=== PATIENT | male | born 1940 | race Caucasian/White ===

== ENCOUNTER 2020-10-13 15:15 | Outpatient (REF) | payer MEDICARE, SELFPAY ==
[2020-10-13 16:08] LABS: Basophils Percent Auto 0.3 % (0-2); Eosinophils Absolute Auto 0.2 X10*3/uL (0.0-0.4); Eosinophils Percent Auto 2.2 % (0-4); Hematocrit 24.4 % (42-52); Hemoglobin 7.6 g/dl (14.0-18.0); Imm Gran Abs Auto 0.05 X10*3/uL (0.00-0.03); Imm Gran Pct Auto 0.5 % (0.0-0.4); Lymphocytes Absolute Auto 0.6 X10*3/uL (1.2-4.9); Lymphocytes Percent Auto 5.8 % (20-40); MANUAL DIFF FLAG SCAN; Mean Corpuscular HGB Conc 31.1 g/dl (31.0-36.0); Mean Corpuscular Hemoglobin 27.9 pg (27.0-33.0); Mean Corpuscular Volume 89.7 fL (80-98); Mean Platelet Volume 11.6 fL (9.4-12.4); Monocytes Absolute Auto 0.9 X10*3/uL (0.1-1.2); Monocytes Percent Auto 9.2 % (2-11); Neutrophils Absolute Auto 8.3 X10*3/uL (2.0-8.3); Platelet Count 89 X10*3/uL (160-400); Red Blood Count 2.72 X10*6/uL (4.60-5.80); Red Cell Distribution Width 17.4 % (11.0-16.0); SCAN SMEAR FLAG 1; White Blood Count 10.1 X10*3/uL (4.8-10.8)
[2020-10-13 16:09] LABS: SLIDE REVIEW VERIFIED
[2020-10-13 16:10] LABS: Vancomycin Trough 17.7 mcg/mL (10.0-20.0)
[2020-10-13 16:11] LABS: Blood Urea Nitrogen 41 mg/dL (9-16); Estimated Glomerular Filt Rate 39
== END 2020-10-13 15:16 | disposition home or self-care (01) ==
LOC: HO.LNP 15:15
PROVIDERS: Visit Provider Internal Medicine Infectious Disease
DX: A49.02 Methicillin resistant Staphylococcus aureus infection, unspecified site (principal); I25.10 Atherosclerotic heart disease of native coronary artery without angina pectoris; E11.9 Type 2 diabetes mellitus without complications
CPT/HCPCS: 80202; 82565; 84520; 85025